=== PATIENT | male | born 1985 | race Caucasian/White ===

== ENCOUNTER 2021-12-01 00:37 | Inpatient (IN) | payer OTHER ==
[~2021-12-01] VITALS: Ht 188 cm; Wt 104.3 kg
[2021-12-01 01:13] VITALS: BP_SYST 135
--- NOTE | 2021-12-01 01:13 | NUR ---
Patient brought from home AO x4 ambulatory complaining of foreign object in his rectum. Patient reports that he was masturbating and inserted a cucumber in his rectum when the cucumber broke. Patient denies any pain at this time. Vital signs are stable. Patient is awaiting bed placement in ED MD notified
--- NOTE | 2021-12-01 01:35 | NUR ---
MD BJ Sandoval at bedside examining patient.
[2021-12-01] MEDS ORDERED: KETAMINE HCL 500 MG/10 ML VIAL IVP ONE (03:15)
[2021-12-01] MEDS ORDERED: MIDAZOLAM HCL 5 MG/5 ML VIAL IVP ONE (03:15)
[2021-12-01] MEDS ORDERED: KETAMINE HCL 500 MG/10 ML VIAL ONE (03:37)
--- NOTE | 2021-12-01 04:00 | NUR ---
# 20 gauge angiocath placed to R AC. Use of asceptic technique. Opsite placed over site. Blood return noted. Flushed with 10 cc of normal saline. No evidence of infiltration noted. Patient tolerated well.
--- NOTE | 2021-12-01 04:19 | NUR ---
RN, RT, MD at bedside. Pt in stable condition and educated on procedure. Questions/concerns answered. Connected to monitor and VS stable at this time. Placed on 2 lpm via NC, O2 sat @ 99%. NS 0.9% running at 80 cc/hr. "Time out" completed.
--- NOTE | 2021-12-01 04:20 | NUR ---
Medication administered for moderate sedation as ordered for Foreign object extraction. No signs of respiratory distress intra procedure. MD attempted to remove foreign body; oozing of bright red blood noted from rectum during procedure. PT VS signs remain stable at this time.
--- NOTE | 2021-12-01 04:35 | NUR ---
Foreign body extraction attempt ended. unable to remove foreign object. Pt remains sedated at this time. VS remains stable. Breathing adequately on 2 lpm via NC. IVF running as ordered. No active bleeding noted at this time. Cont on monitor.
[2021-12-01] MEDS ORDERED: NACL 0.9% 1,000 ML IV SCH (04:45)
[2021-12-01] MEDS ORDERED: ONDANSETRON HCL 4 MG/2 ML VIAL IVP PRN ×2 (04:45→13:15)
[2021-12-01] MEDS ORDERED: MORPHINE 2 MG/ML INJ. SYRINGE IVP PRN (04:45)
--- NOTE | 2021-12-01 04:46 | NUR ---
Admit bed requested Patient will be admitted to care of . Admitted to [facility] unit. Diagnosis GI BLEED Inpatient (Yes or No) YES Observation (Yes or No) NO Orientation concerns or request close to nursing station (Yes or No) NO Covid Status PENDING On vent or bipap NO Isolation requirements NO Needs a sitter NO From Home (Yes or if No enter name of facility) YES Requires Dialysis (Yes or No) NO Med Rec Completed (Yes of No) PENDING
--- NOTE | 2021-12-01 05:40 | NUR ---
Pt awake and verbally responsive. A/O x4. Unsuccessful procedure explained to pt by MD and aware of admission to [facility]. Pt denies any pain/discomfort at this time. Continues on 2 lpm via NC. VS remain stable. No active bleeding noted. Recovery scoring tool score of 14 at this time.
[2021-12-01 06:11] LABS: MEAN CORPUSCULAR HGB CONC 34 % (32-36)
[2021-12-01 06:17] LABS: CREATININE 0.83 mg/dL (0.55-1.30)
[2021-12-01 06:18] LABS: BASOPHILS % (AUTO) 0.6 % (0.0-2.0); EOSINOPHILS % (AUTO) 0.4 % (0.0-4.0); HEMATOCRIT 39.4 % (36-54); HEMOGLOBIN 13.3 g/dL (14.0-18.0); LYMPHOCYTES # (AUTO) 1.2 K/uL (1.0-5.5); LYMPHOCYTES % (AUTO) 16.2 % (20.5-51.5); MEAN CORPUSCULAR HEMOGLOBIN 29 pg (27-31); MEAN CORPUSCULAR VOLUME 86 fL (79.0-98.0); MONOCYTES # (AUTO) 0.6 K/uL (0.0-1.0); MONOCYTES % (AUTO) 7.3 % (1.7-9.3); NEUTROPHILS # (AUTO) 5.8 K/uL (1.8-7.7); NEUTROPHILS % (AUTO) 75.5 % (40.0-70.0); PLATELET COUNT (AUTO) 226 K/uL (130-430); RED BLOOD CELL COUNT(AUTO) 4.58 MIL/uL (4.2-6.2); RED CELL DISTRIBUTION WIDTH 13.8 % (9.0-15.0); WHITE BLOOD COUNT (AUTO) 7.7 K/uL (4.8-10.8)
[2021-12-01 06:23] LABS: ALBUMIN 3.8 g/dL (3.4-4.8); TOTAL BILIRUBIN 0.7 mg/dL (0.0-1.0)
--- NOTE | 2021-12-01 06:47 | NUR ---
Pt sleeping at this time, but is easily arousable. VS stable. No signs of acute distress. Breathing adequately on 2 lpm via NC.
--- NOTE | 2021-12-01 07:10 | NUR ---
Report/care endorsed to DAMI Manuel with opportunity for questions.
--- NOTE | 2021-12-01 07:19 | NUR ---
a/ox4 vss respirations even non labored, denies pain,awaiting for surgery
--- NOTE | 2021-12-01 08:31 | NUR ---
gi doctor at bedside at this time
--- NOTE | 2021-12-01 08:39 | NUR ---
GI lab called with request to ensure enema order in place. Notified DR Kyle.
--- NOTE | 2021-12-01 09:43 | NUR ---
PT IN GI LAB AT THIS TIME
[2021-12-01] MEDS ORDERED: DIPHENHYDRAMINE INJ 50 MG/ML VIAL ONE (10:07)
[2021-12-01] MEDS: MEPERIDINE 100 MG INJ. 100 MG/ML VIAL ONE ×3 (10:07→10:25)
[2021-12-01] MEDS: MIDAZOLAM HCL 5 MG/5 ML VIAL ONE ×2 (10:07→10:09)
[2021-12-01] MEDS ORDERED: MORPHINE SULFATE 10MG/10ML PF AMP EP ONE (10:30)
[2021-12-01] MEDS ORDERED: LR 1,000 ML IV.SOLN IV ONE (10:30)
[2021-12-01] MEDS ORDERED: CEFAZOLIN 2 GM IVPB PREMIX 50 ML IV ONE (10:30)
[2021-12-01] MEDS ORDERED: NS IRRIG SOLN 1000 ML IR ONE (10:30)
[2021-12-01] MEDS ORDERED: METHYLERGONOVINE MALEATE 0.2 MG/ML AMP IM ONE (10:30)
[2021-12-01] MEDS ORDERED: BUPIVACAINE /DEX PF 0.75% SPINAL 2 ML AMP INJ ONE (10:30)
[2021-12-01] MEDS ORDERED: ePHEDrine sulfate 50 MG/ML VIAL IVP ONE (10:30)
--- NOTE | 2021-12-01 11:30 | NUR ---
Mr Whitt arrives to [facility]. He is quickly taken to OR.
[2021-12-01] MEDS ORDERED: SEVOFLURANE 15 MIN GAS INH ONE (12:40)
[2021-12-01] MEDS ORDERED: PROPOFOL 200MG/ 20ML VIAL (DIPRIVAN) IV ONE (12:40)
[2021-12-01] MEDS ORDERED: NS 1000 ML IV.SOLN IV ONE ×2 (12:40)
[2021-12-01] MEDS ORDERED: fentaNYL CITRATE/PF 100 MCG/2 ML AMP IVP PRN ×2 (13:15)
[2021-12-01] MEDS ORDERED: METOCLOPRAMIDE HCL 10 MG/2 ML VIAL IVP PRN (13:15)
[2021-12-01 14:00] VITALS: BP_SYST 134
--- NOTE | 2021-12-01 14:15 | NUR ---
Mr Whitt returns to [facility]. He has been assessed as indicated. He denies pain but states that he has a a slight feeling of nausea. He was successfully treated for this. He is resting quietly with no s/s of distress or discomfort.
--- NOTE | 2021-12-01 14:33 | NUR ---
PAGED FOR ORDERS SPOKE TO:
[2021-12-01 17:33] VITALS: BP_SYST 138
--- NOTE | 2021-12-01 17:50 | NUR ---
Mr Whitt is DC home. IV access has been removed. DC instruction have been reviewed. He indicates that he understands the instructions. He has been provided Dr Abreu' office phone number so that he can make a follow up appointment in 2 weeks. He has been made aware that a telephone visit is an lp Addendum: 12/01/21 at 1954 by [employer] member of the legislative council option. He was escorted to the front office representative where he collected his keys and wallet and then walked to the car under his own power at his insistence. At the time of DC he had no s/s of distress or discomfort and wan compliant with the plan to DC home. Addendum: 12/01/21 at 1955 by [employer] member of the legislative council He stated that he would drive himself home in his private vehicle and have a large bowl of spaghetti upon his arrival
== END 2021-12-01 17:50 | disposition home or self-care (01) | DRG 394 ==
LOC: SED 00:37 → SMU 04:40
PROVIDERS: ADMIT Family Medicine; ATTEND Family Medicine
PROC: 0DJD8ZZ Inspection of Lower Intestinal Tract, Via Natural or Artificial Opening Endoscopic (ICD-10-PCS; 2021-12-01)
PROC: 0DCP8ZZ Extirpation of Matter from Rectum, Via Natural or Artificial Opening Endoscopic (ICD-10-PCS; principal; 2021-12-01 09:30)
DX: T18.5XXA Foreign body in anus and rectum, initial encounter (principal); K62.5 Hemorrhage of anus and rectum; Z20.822 Contact with and (suspected) exposure to COVID-19; X58.XXXA Exposure to other specified factors, initial encounter; Y93.89 Activity, other specified; Y92.89 Other specified places as the place of occurrence of the external cause; Y99.8 Other external cause status
CPT/HCPCS: 36415; 74018; 80053; 83690; 85025; 88302; 99285; J0690; J1200; J2175; J2210; J2250; J2274; J2405; J2704; J3490; J7030; J7120